=== PATIENT | female | born 1985 | race Caucasian/White ===

== ENCOUNTER 2018-11-14 23:45 | Emergency (ER) | payer BC ==
[2018-11-15] MEDS ORDERED: Sodium Chloride 0.9% 1,000 ML IV ONE (00:04)
--- NOTE | 2018-11-15 00:28 | EDM.PDOC ---
ED HPI GENERAL MEDICAL PROBLEM - General Chief Complaint: General Stated Complaint: hyperglycemia Time Seen by Provider: 11/15/18 00:21 Source of Information: Reports: Patient History Limitations: Reports: No Limitations - History of Present Illness INITIAL COMMENTS - FREE TEXT/NARRATIVE: Patient is a 33-year-old female who presents to the emergency department this evening with a complaint of high blood glucose. Patient states that approximately 2000 hours, she checked her blood sugar and it was 500. Said she felt nauseous and weak, but did not vomit. Symptoms did not improve and she was supposed to go to work, but decided to come to the ER instead. Patient states she does have difficult glucose control. Patient is on 2 oral diabetic medications. Patient denies chest pain, shortness of breath, abdominal pain, change in medication, or change in diet, Onset: Today Duration: Hour(s): Severity: Mild Improves with: Reports: None Worsens with: Reports: None Associated Symptoms: Reports: Nausea/Vomiting, Weakness - Related Data Allergies Allergy/AdvReac Type Severity Reaction Status Date / Time Nnalpup-Flm-Gwe Reductase Allergy Airway Verified 11/15/18 00:02 Inhibitor Tightness Home Meds: Home Meds Escitalopram Oxalate [Lexapro] 20 mg PO DAILY 11/15/18 [History] Ibuprofen/Diphenhydramine Cit [Advil Pm Caplet] 2 tab PO DAILY 11/15/18 [History ] Insulin Degludec [Tresiba] 26 units SUBCUT DAILY 11/15/18 [History] Liraglutide [Victoza] 1.8 mg SUBCUT DAILY 11/15/18 [History] ED ROS GENERAL - Review of Systems Review Of Systems: ROS reveals no pertinent complaints other than HPI. Constitutional: Reports: Weakness HEENT: Reports: No Symptoms Respiratory: Reports: No Symptoms Cardiovascular: Reports: No Symptoms Endocrine: Reports: High Glucose GI/Abdominal: Reports: No Symptoms : Reports: No Symptoms Musculoskeletal: Reports: No Symptoms Skin: Reports: No Symptoms Neurological: Reports: No Symptoms Psychiatric: Reports: No Symptoms Hematologic/Lymphatic: Reports: No Symptoms Immunologic: Reports: No Symptoms ED EXAM, GENERAL - Physical Exam Exam: See Below Exam Limited By: No Limitations General Appearance: Alert, WD/WN, No Apparent Distress Eye Exam: Bilateral Eye: Normal Inspection Nose: Normal Inspection, Normal Mucosa, No Blood Throat/Mouth: Normal Inspection, Normal Oropharynx, No Airway Compromise Head: Atraumatic, Normocephalic Neck: Normal Inspection, Supple Respiratory/Chest: No Respiratory Distress, Lungs Clear, Normal Breath Sounds, No Accessory Muscle Use, Chest Non-Tender Cardiovascular: Regular Rate, Rhythm, No Murmur GI/Abdominal: Normal Bowel Sounds, Soft, Non-Tender, No Organomegaly, No Distention, No Abnormal Bruit, No Mass Extremities: Normal Inspection, No Pedal Edema Neurological: Alert, Oriented, CN II-XII Intact, Normal Cognition, No Motor/ Sensory Deficits Psychiatric: Normal Affect, Normal Mood Skin Exam: Warm, Dry, Intact, Normal Color, No Rash Lymphatic: No Adenopathy Course - Vital Signs Last Recorded V/S: Last Vital Signs Temp 97.2 F 11/15/18 00:34 Pulse 93 11/15/18 00:34 Resp 18 11/15/18 00:34 BP 108/70 11/15/18 00:34 Pulse Ox 97 11/15/18 00:34 - Orders/Labs/Meds Labs: Laboratory Tests 11/15/18 11/15/18 11/15/18 Range/Units 00:25 00:25 00:30 WBC 7.46 (5.00-10.00) 10^3/uL RBC 5.05 (3.80-5.50) 10^6/uL Hgb 15.4 (12.0-16.0) g/dL Hct 42.5 (37.0-47.0) % MCV 84.2 (82.0-92.0) fL MCH 30.5 (27.0-31.0) pg MCHC 36.2 H (32.0-36.0) g/dL RDW 12.0 (11.5-14.5) % Plt Count 279 (150-400) 10^3/uL MPV 9.1 (7.4-10.4) fL Immature Gran % (Auto) 0.1 (0.0-5.0) % Neut % (Auto) 49.6 L (50.0-70.0) % Lymph % (Auto) 37.8 (20.0-40.0) % [place] % (Auto) 7.4 (2.0-8.0) % Eos % (Auto) 4.6 H (1.0-3.0) % Baso % (Auto) 0.5 (0.0-1.0) % Immature Gran # (Auto) 0.01 (0.00-0.50) 10^3/uL Neut # (Auto) 3.70 (2.50-7.00) 10^3/uL Lymph # (Auto) 2.82 (1.00-4.00) 10^3/uL [place] # (Auto) 0.55 (0.10-0.80) 10^3/uL Eos # (Auto) 0.34 H (0.10-0.30) 10^3/uL Baso # (Auto) 0.04 (0.00-0.10) 10^3/uL Sodium (136-145) mmol/L Potassium (3.3-5.3) mmol/L Chloride (98-115) mmol/L Carbon Dioxide (21.0-32.0) mmol/L Anion Gap (5-15) mmol/L BUN (6-25) mg/dL Creatinine (0.51-1.17) mg/dL Est Cr Clr Drug Dosing mL/min Estimated GFR (MDRD) mL/min Glucose (75 - 99) mg/dL Calcium (8.7-10.3) mg/dL Total Bilirubin (0.2-1.0) mg/dL AST (15-37) U/L ALT (12-78) U/L Alkaline Phosphatase (46-116) IU/L Total Protein (6.4-8.2) g/dL Albumin (3.00-4.80) g/dL Specimen Type Urincc Urine Color Yellow (YELLOW) Urine Appearance Slightly cloudy H (CLEAR) Urine pH 7.0 (5.0-9.0) Ur Specific [place] 1.010 (1.005-1.030) Urine Protein Negative (NEGATIVE) mg/dL Urine Glucose (UA) >=1000 H (NEGATIVE) mg/dL Urine Ketones 15 H (NEGATIVE) mg/dL Urine Occult Blood Negative (NEGATIVE) Urine Nitrite Negative (NEGATIVE) Urine Bilirubin Negative (NEGATIVE) Urine Urobilinogen 0.2 (0.2-1.0) E.U./dL Ur Leukocyte Esterase Negative (NEGATIVE) Urine RBC 0-5 (0-5) /HPF Urine WBC 0-5 (0-5) /HPF Ur Epithelial Cells Few /LPF Urine Bacteria Few (NONE TO FEW) /HPF Urine HCG, Qual Negative (NEGATIVE) 11/15/18 Range/Units 00:30 WBC (5.00-10.00) 10^3/uL RBC (3.80-5.50) 10^6/uL Hgb (12.0-16.0) g/dL Hct (37.0-47.0) % MCV (82.0-92.0) fL MCH (27.0-31.0) pg MCHC (32.0-36.0) g/dL RDW (11.5-14.5) % Plt Count (150-400) 10^3/uL MPV (7.4-10.4) fL Immature Gran % (Auto) (0.0-5.0) % Neut % (Auto) (50.0-70.0) % Lymph % (Auto) (20.0-40.0) % [place] % (Auto) (2.0-8.0) % Eos % (Auto) (1.0-3.0) % Baso % (Auto) (0.0-1.0) % Immature Gran # (Auto) (0.00-0.50) 10^3/uL Neut # (Auto) (2.50-7.00) 10^3/uL Lymph # (Auto) (1.00-4.00) 10^3/uL [place] # (Auto) (0.10-0.80) 10^3/uL Eos # (Auto) (0.10-0.30) 10^3/uL Baso # (Auto) (0.00-0.10) 10^3/uL Sodium 135 L (136-145) mmol/L Potassium 3.8 (3.3-5.3) mmol/L Chloride 100 (98-115) mmol/L Carbon Dioxide 27.2 (21.0-32.0) mmol/L Anion Gap 11.6 (5-15) mmol/L BUN 13 (6-25) mg/dL Creatinine 0.53 (0.51-1.17) mg/dL Est Cr Clr Drug Dosing 127.22 mL/min Estimated GFR (MDRD) > 60 mL/min Glucose 301 H (75 - 99) mg/dL Calcium 8.4 L (8.7-10.3) mg/dL Total Bilirubin 0.5 (0.2-1.0) mg/dL AST 12 L (15-37) U/L ALT 24 (12-78) U/L Alkaline Phosphatase 55 (46-116) IU/L Total Protein 7.8 (6.4-8.2) g/dL Albumin 3.63 (3.00-4.80) g/dL Specimen Type Urine Color (YELLOW) Urine Appearance (CLEAR) Urine pH (5.0-9.0) Ur Specific [place] (1.005-1.030) Urine Protein (NEGATIVE) mg/dL Urine Glucose (UA) (NEGATIVE) mg/dL Urine Ketones (NEGATIVE) mg/dL Urine Occult Blood (NEGATIVE) Urine Nitrite (NEGATIVE) Urine Bilirubin (NEGATIVE) Urine Urobilinogen (0.2-1.0) E.U./dL Ur Leukocyte Esterase (NEGATIVE) Urine RBC (0-5) /HPF Urine WBC (0-5) /HPF Ur Epithelial Cells /LPF Urine Bacteria (NONE TO FEW) /HPF Urine HCG, Qual (NEGATIVE) Meds: Medications Discontinued Medications Generic Name Dose Route Start Last Admin Trade Name Freq PRN Reason Stop Dose Admin Sodium Chloride 1,000 mls @ 2,000 mls/hr 11/15/18 00:04 11/15/18 00:19 Normal Saline IV 11/15/18 00:33 2,000 mls/hr .BOLUS ONE Administration Ondansetron HCl 4 mg 11/15/18 01:03 Zofran IVPUSH 11/15/18 01:04 ONETIME ONE - Re-Assessments/Exams Free Text/Narrative Re-Assessment/Exam: 11/15/18 01:06 Patient afebrile, vital signs stable, blood glucose 300. Patient feels better, nausea resolved. Discussed in depth the importance of glucose control. Patient will follow-up with Amador at [facility] in 1-2 days for reevaluation. 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 Return to emergency sooner if symptoms continue or worsen. Take medication as directed. - Assessment/Plan Assessment:: Hyperglycemia Plan: Follow up with [facility]
[2018-11-15 00:56] LABS: ANION GAP 11.6 mmol/L (5-15); CHLORIDE,CL 100 mmol/L (98-115); SODIUM,NA 135 mmol/L (136-145)
[2018-11-15] MEDS ORDERED: Ondansetron 4 MG/2 ML SDV IVPUSH ONE (01:03)
== END 2018-11-15 01:30 | disposition home or self-care (01) ==
LOC: KA.ED 23:45
DX: E11.65 Type 2 diabetes mellitus with hyperglycemia (principal); Z79.4 Long term (current) use of insulin; Z79.899 Other long term (current) drug therapy; Z88.8 Allergy status to other drugs, medicaments and biological substances
CPT/HCPCS: 36415; 80053; 81001; 81025; 85025; 96361; 96374; 99284-25; J2405; J7030

== ENCOUNTER 2019-04-12 14:22 | Observation (INO) | payer BC ==
[2019-04-12] MEDS ORDERED: Sodium Chloride 0.9% 10 ML Syringe FLUSH PRN (15:43)
[2019-04-12] MEDS ORDERED: Sodium Chloride 0.9% 1,000 ML IV SCH (15:52)
[2019-04-12 16:45] LABS: ANION GAP 12.7 mmol/L (5-15); CHLORIDE,CL 98 mmol/L (98-115); SODIUM,NA 134 mmol/L (136-145)
[2019-04-12] MEDS ORDERED: Insulin Aspart 100 Units/ML 3 ML Pen SUBCUT SCH (18:00)
[2019-04-12] MEDS: Insulin Aspart 100 Units/ML 3 ML Pen SUBCUT SCH ×2 (18:40→21:34)
[2019-04-12] MEDS ORDERED: Ibuprofen 600 MG Tab PO PRN (19:02)
[2019-04-12] MEDS: Sodium Chloride 0.9% 1,000 ML IV SCH (20:04)
[2019-04-12] MEDS: Insulin Glargine,Human Rec. Analog 100 Units/ML 3 ML Pen SUBCUT SCH (21:32)
[2019-04-12] MEDS: Escitalopram 10 MG Tab PO SCH (21:33)
[2019-04-13] MEDS: Sodium Chloride 0.9% 1,000 ML IV SCH ×2 (01:05→06:04)
[2019-04-13] MEDS: Insulin Aspart 100 Units/ML 3 ML Pen SUBCUT SCH ×5 (08:14→21:55)
--- NOTE | 2019-04-13 11:27 | PCM.PN ---
- General Info Date of Service: 04/13/19 Functional Status: Reports: Pain Controlled, Tolerating Diet, Urinating. Denies : New Symptoms - Review of Systems General: Denies: Weakness, Fatigue, Malaise, Chills HEENT: Reports: Sinus Congestion. Denies: Visual Changes Pulmonary: Reports: Cough. Denies: Shortness of Breath, Pleuritic Chest Pain, Sputum, Wheezing Cardiovascular: Denies: Chest Pain, Dyspnea on Exertion, Orthopnea, Edema Gastrointestinal: Reports: No Symptoms Genitourinary: Denies: Dysuria, Frequency Musculoskeletal: Reports: No Symptoms Skin: Reports: Dryness Neurological: Denies: Confusion Psychiatric: Reports: No Symptoms - Patient Data Vitals - Most Recent: Last Vital Signs Temp 98.4 F 04/13/19 06:52 Pulse 89 04/13/19 06:52 Resp 12 04/13/19 06:52 BP 102/70 04/13/19 06:52 Pulse Ox 97 04/13/19 06:52 Weight - Most Recent: 161 lb 8 oz I&O - Last 24 Hours: Intake & Output 04/12/19 04/13/19 04/13/19 22:59 06:59 14:59 Intake Total 2149 1600 Output Total 700 1000 Balance 1449 600 Lab Results Last 24 Hours: Laboratory Results - last 24 hr 04/12/19 04/12/19 04/12/19 Range/Units 15:00 15:55 16:15 WBC 9.42 (5.00-10.00) 10^3/uL RBC 4.97 (3.80-5.50) 10^6/uL Hgb 15.2 (12.0-16.0) g/dL Hct 41.1 (37.0-47.0) % MCV 82.7 (82.0-92.0) fL MCH 30.6 (27.0-31.0) pg MCHC 37.0 H (32.0-36.0) g/dL RDW 12.0 (11.5-14.5) % Plt Count 246 (150-400) 10^3/uL MPV 9.1 (7.4-10.4) fL Immature Gran % (Auto) 1.3 (0.0-5.0) % Neut % (Auto) 67.1 (50.0-70.0) % Lymph % (Auto) 23.0 (20.0-40.0) % [place] % (Auto) 6.9 (2.0-8.0) % Eos % (Auto) 1.5 (1.0-3.0) % Baso % (Auto) 0.2 (0.0-1.0) % Immature Gran # (Auto) 0.12 (0.00-0.50) 10^3/uL Neut # (Auto) 6.32 (2.50-7.00) 10^3/uL Lymph # (Auto) 2.17 (1.00-4.00) 10^3/uL [place] # (Auto) 0.65 (0.10-0.80) 10^3/uL Eos # (Auto) 0.14 (0.10-0.30) 10^3/uL Baso # (Auto) 0.02 (0.00-0.10) 10^3/uL Sodium (136-145) mmol/L Potassium (3.3-5.3) mmol/L Chloride (98-115) mmol/L Carbon Dioxide (21.0-32.0) mmol/L Anion Gap (5-15) mmol/L BUN (6-25) mg/dL Creatinine (0.51-1.17) mg/dL Est Cr Clr Drug Dosing mL/min Estimated GFR (MDRD) mL/min Glucose (75 - 99) mg/dL POC Glucose 295 H (74-106) mg/dl Lactic Acid (0.4-2.0) mmol/L Calcium (8.7-10.3) mg/dL Total Bilirubin (0.2-1.0) mg/dL AST (15-37) U/L ALT (12-78) U/L Alkaline Phosphatase (46-116) IU/L Total Protein (6.4-8.2) g/dL Albumin (3.00-4.80) g/dL Specimen Type Urinvoid Urine Color Yellow (YELLOW) Urine Appearance Slightly cloudy H (CLEAR) Urine pH 7.0 (5.0-9.0) Ur Specific [place] 1.010 (1.005-1.030) Urine Protein Negative (NEGATIVE) mg/dL Urine Glucose (UA) 500 H (NEGATIVE) mg/dL Urine Ketones Negative (NEGATIVE) mg/dL Urine Occult Blood Negative (NEGATIVE) Urine Nitrite Negative (NEGATIVE) Urine Bilirubin Negative (NEGATIVE) Urine Urobilinogen 0.2 (0.2-1.0) E.U./dL Ur Leukocyte Esterase Negative (NEGATIVE) Urine RBC 0-5 (0-5) /HPF Urine WBC 0-5 (0-5) /HPF Ur Epithelial Cells Few /LPF Urine Bacteria Few (NONE TO FEW) /HPF 04/12/19 04/12/19 04/12/19 Range/Units 16:15 16:15 17:54 WBC (5.00-10.00) 10^3/uL RBC (3.80-5.50) 10^6/uL Hgb (12.0-16.0) g/dL Hct (37.0-47.0) % MCV (82.0-92.0) fL MCH (27.0-31.0) pg MCHC (32.0-36.0) g/dL RDW (11.5-14.5) % Plt Count (150-400) 10^3/uL MPV (7.4-10.4) fL Immature Gran % (Auto) (0.0-5.0) % Neut % (Auto) (50.0-70.0) % Lymph % (Auto) (20.0-40.0) % [place] % (Auto) (2.0-8.0) % Eos % (Auto) (1.0-3.0) % Baso % (Auto) (0.0-1.0) % Immature Gran # (Auto) (0.00-0.50) 10^3/uL Neut # (Auto) (2.50-7.00) 10^3/uL Lymph # (Auto) (1.00-4.00) 10^3/uL [place] # (Auto) (0.10-0.80) 10^3/uL Eos # (Auto) (0.10-0.30) 10^3/uL Baso # (Auto) (0.00-0.10) 10^3/uL Sodium 134 L (136-145) mmol/L Potassium 3.8 (3.3-5.3) mmol/L Chloride 98 (98-115) mmol/L Carbon Dioxide 27.1 (21.0-32.0) mmol/L Anion Gap 12.7 (5-15) mmol/L BUN 13 (6-25) mg/dL Creatinine 0.48 L (0.51-1.17) mg/dL Est Cr Clr Drug Dosing 140.48 mL/min Estimated GFR (MDRD) > 60 mL/min Glucose 352 H (75 - 99) mg/dL POC Glucose 259 H (74-106) mg/dl Lactic Acid 1.2 (0.4-2.0) mmol/L Calcium 8.6 L (8.7-10.3) mg/dL Total Bilirubin 0.4 (0.2-1.0) mg/dL AST 8 L (15-37) U/L ALT 21 (12-78) U/L Alkaline Phosphatase 63 (46-116) IU/L Total Protein 7.1 (6.4-8.2) g/dL Albumin 3.40 (3.00-4.80) g/dL Specimen Type Urine Color (YELLOW) Urine Appearance (CLEAR) Urine pH (5.0-9.0) Ur Specific [place] (1.005-1.030) Urine Protein (NEGATIVE) mg/dL Urine Glucose (UA) (NEGATIVE) mg/dL Urine Ketones (NEGATIVE) mg/dL Urine Occult Blood (NEGATIVE) Urine Nitrite (NEGATIVE) Urine Bilirubin (NEGATIVE) Urine Urobilinogen (0.2-1.0) E.U./dL Ur Leukocyte Esterase (NEGATIVE) Urine RBC (0-5) /HPF Urine WBC (0-5) /HPF Ur Epithelial Cells /LPF Urine Bacteria (NONE TO FEW) /HPF 04/12/19 Range/Units 21:31 WBC (5.00-10.00) 10^3/uL RBC (3.80-5.50) 10^6/uL Hgb (12.0-16.0) g/dL Hct (37.0-47.0) % MCV (82.0-92.0) fL MCH (27.0-31.0) pg MCHC (32.0-36.0) g/dL RDW (11.5-14.5) % Plt Count (150-400) 10^3/uL MPV (7.4-10.4) fL Immature Gran % (Auto) (0.0-5.0) % Neut % (Auto) (50.0-70.0) % Lymph % (Auto) (20.0-40.0) % [place] % (Auto) (2.0-8.0) % Eos % (Auto) (1.0-3.0) % Baso % (Auto) (0.0-1.0) % Immature Gran # (Auto) (0.00-0.50) 10^3/uL Neut # (Auto) (2.50-7.00) 10^3/uL Lymph # (Auto) (1.00-4.00) 10^3/uL [place] # (Auto) (0.10-0.80) 10^3/uL Eos # (Auto) (0.10-0.30) 10^3/uL Baso # (Auto) (0.00-0.10) 10^3/uL Sodium (136-145) mmol/L Potassium (3.3-5.3) mmol/L Chloride (98-115) mmol/L Carbon Dioxide (21.0-32.0) mmol/L Anion Gap (5-15) mmol/L BUN (6-25) mg/dL Creatinine (0.51-1.17) mg/dL Est Cr Clr Drug Dosing mL/min Estimated GFR (MDRD) mL/min Glucose (75 - 99) mg/dL POC Glucose 311 H (74-106) mg/dl Lactic Acid (0.4-2.0) mmol/L Calcium (8.7-10.3) mg/dL Total Bilirubin (0.2-1.0) mg/dL AST (15-37) U/L ALT (12-78) U/L Alkaline Phosphatase (46-116) IU/L Total Protein (6.4-8.2) g/dL Albumin (3.00-4.80) g/dL Specimen Type Urine Color (YELLOW) Urine Appearance (CLEAR) Urine pH (5.0-9.0) Ur Specific [place] (1.005-1.030) Urine Protein (NEGATIVE) mg/dL Urine Glucose (UA) (NEGATIVE) mg/dL Urine Ketones (NEGATIVE) mg/dL Urine Occult Blood (NEGATIVE) Urine Nitrite (NEGATIVE) Urine Bilirubin (NEGATIVE) Urine Urobilinogen (0.2-1.0) E.U./dL Ur Leukocyte Esterase (NEGATIVE) Urine RBC (0-5) /HPF Urine WBC (0-5) /HPF Ur Epithelial Cells /LPF Urine Bacteria (NONE TO FEW) /HPF Med Orders - Current: Current Medications Escitalopram Oxalate (Lexapro) 40 mg PO BEDTIME [facility] Last Admin: 04/12/19 21:33 Dose: 40 mg Sodium Chloride (Normal Saline) 1,000 mls @ 200 mls/hr IV ASDIRECTED [facility] Last Admin: 04/13/19 06:04 Dose: 200 mls/hr Ibuprofen (Motrin) 600 mg PO Q8H PRN PRN Reason: Pain (moderate 4-6) Insulin Aspart (Novolog) 0 unit SUBCUT WITHMEALSANDBED [facility]; Protocol Last Admin: 04/13/19 08:14 Dose: 3 units Insulin Glargine (Lantus Solostar) 30 units SUBCUT BEDTIME [facility] Last Admin: 04/12/19 21:32 Dose: 30 unit Sodium Chloride (Saline Flush) 10 ml FLUSH Q8HR PRN PRN Reason: keep vein open Discontinued Medications Sodium Chloride (Normal Saline) 1,000 mls @ 250 mls/hr IV ASDIRECTED [facility] Stop: 04/12/19 19:51 Last Admin: 04/12/19 15:50 Dose: 250 mls/hr - Exam Quality Assessment: No: Supplemental Oxygen General: Alert, Oriented, Cooperative, No Acute Distress HEENT: No: Mucous Membr. Moist/[place] Neck: No JVD Lungs: Clear to Auscultation, Normal Respiratory Effort Cardiovascular: Regular Rate, Regular Rhythm GI/Abdominal Exam: Normal Bowel Sounds, Soft (Female) Exam: Deferred Back Exam: No: CVA Tenderness (L), CVA Tenderness (R) Extremities: Normal Capillary Refill. No: Pedal Edema Peripheral Pulses: 2+: Radial (L), Radial (R) Skin: Dry Neurological: No New Focal Deficit Psy/Mental Status: Alert, Normal Affect, Normal Mood - Problem List Review Problem List Initiated/Reviewed/Updated: Yes - Plan Plan:: History summary/ pre-hospital course Crystal a 33-year-old female is admitted into [facility] by Amador ROWLAND on April 12 from [facility] with generalize constitutional symptoms such as weakness, fatigue, cough, laryngitis, nasal congestion, on and off undocumented fevers, diaphoresis and sx suggestive of upper respiratory tract infection along with uncontrolled diabetes with hyperglycemia. Patient is a type I diabetic since age 18 with recent hemoglobin A1c 10.5%. She was recently given nasal and oral glucocorticoid therapy due to laryngitis and eustachian tube dysfunction She start on insulin age 20 and she was initially starting on metformin however developed GI side effects and could not tolerate. Was some concern whether or not she was a type I or type II and C-peptide studies were done and she is being ostensibly treated as type I. She had been on simvastatin in the past however she took herself off of this chest pains or shortness of breath, Interviewing the patient, uncontrolled type 1 diabetes hemoglobin A1c as high as 14% per patient report, works night shifts, no prandial coverage insulin, has basic understand about CHO counting however admits to not following, Does not prepare her own meals, states she eats what her brings her. States she has seen M.D.~ 1 year ago @ previous residence. She not using prandial meal coverage, she states in the past even 1 unit insulin will make her "bottom out" Current home insulin regimen Tresiba 27u daily (was increased to 30units Long acting on admission) GLP-1 Victoza 1.8 mg daily Pertinent clinical findings Glucose ~500-700 NA+ 129, (corrected 144) Update today, patient feeling better, was hydrated aggressively with IV fluids, blood glucose is improving, was started on a high-dose ISS, no signs and symptoms of DKA, no shortness of breath, lactate normal Primary hospital problems T1DM, uncontrolled, hyperglycemia, improving Dehydration, becoming euvolemic, Disposition/overall plan/discharge planning --Cont OBS status today --Saline lock IV, encourage by mouth fluids --Nutritional consult today --Pharmacy consult for Dimitris blood glucose device. --Endocrinology consultation--recommend insulin pump --Short-term, still requiring significant insulin and will monitor both long- acting and prandial needs, keep on GLP-1 for now until Endo appt. will need very close follow-up to monitor her self-management diabetes including diabetic education, family education.
[2019-04-13] MEDS ORDERED: Sodium Chloride 0.9% 10 ML Syringe FLUSH PRN (11:36)
[2019-04-13] MEDS ORDERED: Escitalopram 10 MG Tab PO SCH (21:00)
[2019-04-13] MEDS ORDERED: Insulin Aspart 100 Units/ML 3 ML Pen SUBCUT ONE ×2 (21:51→21:53)
[2019-04-13] MEDS: Escitalopram 10 MG Tab PO SCH (21:59)
[2019-04-13] MEDS: Insulin Glargine,Human Rec. Analog 100 Units/ML 3 ML Pen SUBCUT SCH (22:00)
[2019-04-14] MEDS: Insulin Aspart 100 Units/ML 3 ML Pen SUBCUT SCH ×2 (08:06→12:16)
--- NOTE | 2019-04-14 10:55 | PCM.DCSUM1 ---
Discharge Summary - Hospital Course Diagnosis: Stroke: No - Discharge Data Discharge Date: 04/14/19 Discharge Disposition: Home, Self-Care 01 Condition: Good - Referral to Home Health Primary Care Physician: Amador Mayfield PA-C - Patient Summary/Data Consults: Consultations 04/13/19 12:09 Nutrition Reassessment/Plan, Adult [Consult to Medical Office Professional Instructor] [CONS] Routine - Patient Instructions Diet: Drink 8-10+ Glasses/Day, Diabetic Diet Activity: As Tolerated Driving: May Drive Today Notify Provider of: Fever, Nausea and/or Vomiting Other/Special Instructions: Correction scale (additional insulin added to your preset mealtime insulin). Glucose: less than 150, no ADDED insulin. Glucose: 150-199, additional 1 unit. Glucose: 200-249, additional 2 units. Glucose: 250-299, additional 3 units. Glucose: 300-349, additional 4 units. Glucose : 350-400, additional 5 units. Glucose: greater than 400 notify provider. I have ordered your Dimitris glucose machie through your pharmacy. Nutrional consult has been placed--you will be called. - Discharge Plan *PRESCRIPTION DRUG MONITORING PROGRAM REVIEWED*: Not Applicable *COPY OF PRESCRIPTION DRUG MONITORING REPORT IN PATIENT AMA: Not Applicable Home Medications: Home Meds Ibuprofen/Diphenhydramine Cit [Advil Pm Caplet] 2 tab PO DAILY PRN 11/15/18 [ History] Liraglutide [Victoza] 1.8 mg SUBCUT 2100 11/15/18 [History] Escitalopram Oxalate [Lexapro] 20 mg PO 2100 #90 04/14/19 [Rx] Insulin Degludec [Tresiba] 30 units SUBCUT 2100 #0 04/14/19 [Rx] Forms: Return to Work/Inpatient OON - Discharge Summary/Plan Comment DC Time >30 min.: Yes Discharge Summary/Plan Comment: final diagnosis T1DM, uncontrolled, hyperglycemia, improving Dehydration, resolved History summary/pre-hospital course Crystal a 33-year-old female is admitted into [facility] by Amador ROWLAND on April 12 from [facility] with generalize constitutional symptoms such as weakness, fatigue, cough, laryngitis, nasal congestion, on and off undocumented fevers, diaphoresis and sx suggestive of upper respiratory tract infection along with uncontrolled diabetes with hyperglycemia. Patient is a type I diabetic since age 18 with recent hemoglobin A1c 10.5%. She was recently given nasal and oral glucocorticoid therapy due to laryngitis and eustachian tube dysfunction. She start on insulin age 20 and she was initially starting on metformin however developed GI side effects and could not tolerate. Was some concern whether or not she was a type I or type II and C-peptide studies were done and she is being ostensibly treated as type I. She had been on simvastatin in the past however she took herself off of this chest pains or shortness of breath. patient reports that she has had A1c as high as 14% per patient report, works night shifts, no prandial coverage insulin, has basic understand about CHO counting however admits to not following, Does not prepare her own meals, states she eats what her brings her. States she has seen M.D.~ 1 year ago @ previous residence. She not using prandial meal coverage, she states in the past even 1 unit insulin will make her "bottom out" Current home insulin regimen Tresiba 27u daily (was increased to 30units Long acting on admission) GLP-1 Victoza 1.8 mg daily hospital course Had Glucose ~500-700, NA+ 129, (corrected 144).Upon arrival patient was hydrated aggressively with IV fluids, blood glucose did improve with addition of insulin coverage. started on a high-dose ISS, no signs and symptoms of DKA, no shortness of breath, lactate normal, became euvole Had no complications. She was very receptive of all education given to her. Dietary consult visit her in hospital, motivational interview techinques were used and appears the patient motivating factor went from a 2/10 to 8/10 on SMBG testing IF she would not have to stick herself in finger--Therefore Dimitris Blood monitoring system was ordered through [facility] for her. consultations --Endocrinology consultation, placed --diabetic education, placed --Nutrition/dietary consult, placed for 2 weeks then QTRLY, with Alejandra Chao, --Rx consult, discussed with her pharmacist Wil, and he will reeducate regarding testing her finger appropriately medication changes/adjustments upon discharge --Tresiba, increased to 30u QHS (up from 27) --decreased Lexapro to 20 mg --add NovoLog/aspart meal as directed --ordered new testing strips for current blood glucose meter --ordered Dimitris Meter and 14 Day Sensor through [facility] NovoLog 4 units for small meal (PLUS Insulin sliding scale) NovoLog 6 units for larger meal (PLUS Insulin sliding scale) Correction scale (additional insulin added to you preset fixed mealtime insulin) Glucose: less than 150, no ADDED insulin Glucose: 150-199, additional 1 unit Glucose: 200-249, additional 2 units Glucose: 250-299, additional 3 units Glucose: 300-349, additional 4 units Glucose: 350-400, additional 5 units Glucose: greater than 400 notify provider - General Info Functional Status: Reports: Pain Controlled - Review of Systems General: Reports: No Symptoms HEENT: Reports: No Symptoms Pulmonary: Reports: No Symptoms Cardiovascular: Reports: No Symptoms Gastrointestinal: Reports: No Symptoms Genitourinary: Reports: No Symptoms Musculoskeletal: Reports: No Symptoms Skin: Reports: No Symptoms Neurological: Reports: No Symptoms Psychiatric: Reports: No Symptoms - Patient Data Vitals - Most Recent: Last Vital Signs Temp 98.4 F 04/14/19 07:00 Pulse 91 04/14/19 07:00 Resp 16 04/14/19 07:00 BP 97/65 04/14/19 07:00 Pulse Ox 95 04/14/19 07:00 Weight - Most Recent: 161 lb 8 oz I&O - Last 24 hours: Intake & Output 04/13/19 04/14/19 04/14/19 22:59 06:59 14:59 Intake Total 940 100 Output Total 2480 1100 Balance -1540 -1000 Lab Results - Last 24 hrs: Laboratory Results - last 24 hr 04/13/19 04/13/19 04/13/19 Range/Units 07:59 11:40 17:45 POC Glucose 177 H 312 H 299 H (74-106) mg/dl 04/13/19 04/14/19 Range/Units 21:26 07:30 POC Glucose 402 H 198 H (74-106) mg/dl Med Orders - Current: Current Medications Escitalopram Oxalate (Lexapro) 40 mg PO BEDTIME MOOSE Last Admin: 04/13/19 21:59 Dose: 40 mg Ibuprofen (Motrin) 600 mg PO Q8H PRN PRN Reason: Pain (moderate 4-6) Last Admin: 04/14/19 08:07 Dose: 600 mg Insulin Aspart (Novolog) 0 unit SUBCUT WITHMEALSANDBED MOOSE; Protocol Last Admin: 04/14/19 08:06 Dose: 3 units Insulin Glargine (Lantus Solostar) 30 units SUBCUT BEDTIME [facility] Last Admin: 04/13/19 22:00 Dose: 30 unit Sodium Chloride (Saline Flush) 10 ml FLUSH Q8HR PRN PRN Reason: keep vein open Sodium Chloride (Saline Flush) 10 ml FLUSH Q8HR PRN PRN Reason: keep vein open Discontinued Medications Sodium Chloride (Normal Saline) 1,000 mls @ 250 mls/hr IV ASDIRECTED [facility] Stop: 04/12/19 19:51 Last Admin: 04/12/19 15:50 Dose: 250 mls/hr Sodium Chloride (Normal Saline) 1,000 mls @ 200 mls/hr IV ASDIRECTED [facility] Last Admin: 04/13/19 06:04 Dose: 200 mls/hr Insulin Aspart (Novolog) 20 unit SUBCUT ONETIME ONE Stop: 04/13/19 21:54 Last Admin: 04/13/19 22:02 Dose: 20 unit - Exam General: Reports: Alert, Oriented Lungs: Reports: Clear to Auscultation, Normal Respiratory Effort Cardiovascular: Reports: Regular Rate, Regular Rhythm GI/Abdominal Exam: No Distention Skin: Reports: Warm, Dry, Intact Psy/Mental Status: Reports: Alert, Normal Affect, Normal Mood
== END 2019-04-14 16:45 | disposition home or self-care (01) ==
LOC: KA.MS 14:22
PROVIDERS: ADMIT Physician Assistant; ATTEND Family Medicine
DX: E10.65 Type 1 diabetes mellitus with hyperglycemia (principal); E86.0 Dehydration; J04.0 Acute laryngitis; H69.90 Unspecified Eustachian tube disorder, unspecified ear; Z79.4 Long term (current) use of insulin; Z79.899 Other long term (current) drug therapy; Z88.8 Allergy status to other drugs, medicaments and biological substances
CPT/HCPCS: 36415; 80053; 81001; 82962; 83605; 85025; 96360; 96361; A9270; G0378; G0379; J1815; J7030

== ENCOUNTER 2019-04-15 17:48 | Emergency (ER) | payer BC ==
[2019-04-15] MEDS ORDERED: Sodium Chloride 0.9% 1,000 ML IV ONE (18:06)
[2019-04-15] MEDS: Sodium Chloride 0.9% 10 ML Syringe FLUSH PRN ×2 (18:12→20:18)
[2019-04-15] MEDS ORDERED: Ondansetron 4 MG/2 ML SDV IVPUSH ONE ×2 (18:39→20:06)
--- NOTE | 2019-04-15 18:46 | EDM.PDOC ---
ED HPI GENERAL MEDICAL PROBLEM - General Chief Complaint: Gastrointestinal Problem Stated Complaint: NAUSEA/VOMITTING Time Seen by Provider: 04/15/19 18:26 Source of Information: Reports: Patient, Significant Other History Limitations: Reports: No Limitations - History of Present Illness INITIAL COMMENTS - FREE TEXT/NARRATIVE: Patient presents with vomiting that started at 0900 this morning when she tried to eat breakfast. She only ate a couple bites and vomited. She has vomited twice more today and has been nauseated. Can't eat or drink anything. Yesterday she was discharged from [facility] after 3-day stay for dehydration, hyperglycemia (700+ glucose), ENT infection. She had treated with prednisone which raised her glucose. She says she hadn't vomited prior to, or during, the hospitalization. On discharge she was really tired and slept 14 hours last night. Then started vomiting this morning. She last vomited on the way to ER and is nauseated now. POC glucose is 173. Abdominal Pain Score (Numeric/FACES): 4 - Related Data Allergies Allergy/AdvReac Type Severity Reaction Status Date / Time [id number] Reductase Allergy Airway Verified 04/15/19 18:03 Inhibitor Tightness Home Meds: Home Meds Ibuprofen/Diphenhydramine Cit [Advil Pm Caplet] 2 tab PO DAILY PRN 11/15/18 [ History] Liraglutide [Victoza] 1.8 mg SUBCUT 2100 11/15/18 [History] Escitalopram Oxalate [Lexapro] 20 mg PO DAILY 04/15/19 [History] Insulin Aspart [NovoLOG] See Protocol SQ TIDMEALS 04/15/19 [History] Insulin Degludec [Tresiba] 30 units SUBCUT DAILY 04/15/19 [History] Past Medical History Cardiovascular History: Reports: High Cholesterol, Other (See Below) Other Cardiovascular History: broken heart syndrome Other Gastrointestinal History: diarrhea last week Genitourinary History: Reports: Pyelonephritis, UTI, Recurrent PROCESS DESIGN ENGINEER History: Reports: Endometrial Ablation, Other PROCESS DESIGN ENGINEER History: G-3.P-3 Musculoskeletal History: Reports: Arthritis Other Musculoskeletal History: wrists. tendonitis foot Psychiatric History: Reports: Anxiety, Depression, Suicide Attempt Endocrine/Metabolic History: Reports: Diabetes, Type I - Past Surgical History Head Surgeries/Procedures: Reports: None HEENT Surgical History: Reports: Oral Surgery Cardiovascular Surgical History: Reports: None GI Surgical History: Reports: Other (See Below) Other GI Surgeries/Procedures: tummy tuck Female Surgical History: Reports: Endometrial Ablation, Other (See Below) Other Female Surgeries/Procedures: breast augmentation Musculoskeletal Surgical History: Reports: None Social & Family History - Family History Family Medical History: Noncontributory - Caffeine Use Caffeine Use: Reports: Coffee ED ROS GENERAL - Review of Systems Review Of Systems: See Below Constitutional: Denies: Fever, Chills, Malaise, Weakness HEENT: Denies: Ear Pain, Throat Pain, Vision Change Respiratory: Denies: Shortness of Breath, Cough Cardiovascular: Denies: Chest Pain, Lightheadedness, Syncope Endocrine: Reports: High Glucose GI/Abdominal: Reports: Nausea, Vomiting. Denies: Abdominal Pain, Diarrhea : Denies: Dysuria, Flank Pain Musculoskeletal: Reports: No Symptoms Skin: Denies: Cyanosis, Jaundice, Mottled, Pallor, Diaphoresis Neurological: Denies: Confusion, Dizziness, Seizure, Syncope, Trouble Speaking, Difficulty Walking Psychiatric: Denies: Agitation, Anxiety ED EXAM, GI/ABD - Physical Exam Exam: See Below Exam Limited By: No Limitations General Appearance: Alert, WD/WN, No Apparent Distress (appears very comfortable and well) Eyes: Bilateral: Normal Appearance, EOMI Ears: Normal External Exam, Normal Canal, Hearing Grossly Normal, Normal TMs Nose: Normal Inspection, No Blood Throat/Mouth: Normal Inspection, Normal Lips, Normal Oropharynx, Normal Voice, No Airway Compromise Head: Atraumatic, Normocephalic Neck: Normal Inspection, Full Range of Motion Respiratory/Chest: No Respiratory Distress, Lungs Clear, Normal Breath Sounds, No Accessory Muscle Use Cardiovascular: Regular Rate, Rhythm, No Murmur GI/Abdominal Exam: Normal Bowel Sounds, Soft, Non-Tender, No Organomegaly, No Distention Back Exam: Normal Inspection, Full Range of Motion. No: CVA Tenderness (L), CVA Tenderness (R) Extremities: Normal Inspection, Normal Range of Motion Neurological: Alert, Oriented, Normal Cognition, No Motor/Sensory Deficits Psychiatric: Normal Affect, Normal Mood Skin Exam: Warm, Dry, Intact, Normal Color, No Rash Course - Vital Signs Last Recorded V/S: Last Vital Signs Temp 97.2 F 04/15/19 20:04 Pulse 86 04/15/19 20:04 Resp 16 04/15/19 20:04 BP 107/74 04/15/19 20:04 Pulse Ox 98 04/15/19 20:04 - Orders/Labs/Meds Orders: Active Orders 24 hr Category Date Time Status Blood Glucose Check, Bedside [RC] ONETIME Care 04/15/19 18:17 Active Peripheral IV Care [RC] . DIRECTED Care 04/15/19 18:06 Active Sodium Chloride 0.9% [Saline Flush] Med 04/15/19 18:06 Active 10 ml FLUSH Q8HR PRN Peripheral IV Insertion Adult [OM.PC] Routine Oth 04/15/19 18:06 Ordered Medication Orders Sodium Chloride (Saline Flush) 10 ml FLUSH Q8HR PRN PRN Reason: keep vein open Last Admin: 04/15/19 20:18 Dose: 10 ml Admin: 04/15/19 18:12 Dose: 10 ml Labs: Laboratory Tests 04/15/19 04/15/19 04/15/19 Range/Units 18:16 18:20 18:20 WBC (5.00-10.00) 10^3/uL RBC (3.80-5.50) 10^6/uL Hgb (12.0-16.0) g/dL Hct (37.0-47.0) % MCV (82.0-92.0) fL MCH (27.0-31.0) pg MCHC (32.0-36.0) g/dL RDW (11.5-14.5) % Plt Count (150-400) 10^3/uL MPV (7.4-10.4) fL Immature Gran % (Auto) (0.0-5.0) % Neut % (Auto) (50.0-70.0) % Lymph % (Auto) (20.0-40.0) % [place] % (Auto) (2.0-8.0) % Eos % (Auto) (1.0-3.0) % Baso % (Auto) (0.0-1.0) % Immature Gran # (Auto) (0.00-0.50) 10^3/uL Neut # (Auto) (2.50-7.00) 10^3/uL Lymph # (Auto) (1.00-4.00) 10^3/uL [place] # (Auto) (0.10-0.80) 10^3/uL Eos # (Auto) (0.10-0.30) 10^3/uL Baso # (Auto) (0.00-0.10) 10^3/uL Sodium (136-145) mmol/L Potassium (3.3-5.3) mmol/L Chloride (98-115) mmol/L Carbon Dioxide (21.0-32.0) mmol/L Anion Gap (5-15) mmol/L BUN (6-25) mg/dL Creatinine (0.51-1.17) mg/dL Est Cr Clr Drug Dosing mL/min Estimated GFR (MDRD) mL/min Glucose (75 - 99) mg/dL POC Glucose 173 H (74-106) mg/dl Lactic Acid (0.4-2.0) mmol/L Calcium (8.7-10.3) mg/dL Total Bilirubin (0.2-1.0) mg/dL AST (15-37) U/L ALT (12-78) U/L Alkaline Phosphatase (46-116) IU/L Total Protein (6.4-8.2) g/dL Albumin (3.00-4.80) g/dL Specimen Type Urincc Urine Color Yellow (YELLOW) Urine Appearance Slightly cloudy H (CLEAR) Urine pH 5.0 (5.0-9.0) Ur Specific Morehouse >= 1.030 (1.005-1.030) Urine Protein 30 H (NEGATIVE) mg/dL Urine Glucose (UA) Negative (NEGATIVE) mg/dL Urine Ketones >=160 H (NEGATIVE) mg/dL Urine Occult Blood Negative (NEGATIVE) Urine Nitrite Negative (NEGATIVE) Urine Bilirubin Small H (NEGATIVE) Urine Urobilinogen 0.2 (0.2-1.0) E.U./dL Ur Leukocyte Esterase Negative (NEGATIVE) Urine RBC 0-5 (0-5) /HPF Urine WBC 0-5 (0-5) /HPF Ur Epithelial Cells Moderate H /LPF Urine Bacteria Few (NONE TO FEW) /HPF Urine HCG, Qual Negative (NEGATIVE) 04/15/19 04/15/19 04/15/19 Range/Units 18:40 18:40 18:40 WBC 8.62 (5.00-10.00) 10^3/uL RBC 5.30 (3.80-5.50) 10^6/uL Hgb 16.2 H (12.0-16.0) g/dL Hct 44.9 (37.0-47.0) % MCV 84.7 (82.0-92.0) fL MCH 30.6 (27.0-31.0) pg MCHC 36.1 H (32.0-36.0) g/dL RDW 12.3 (11.5-14.5) % Plt Count 226 (150-400) 10^3/uL MPV 8.9 (7.4-10.4) fL Immature Gran % (Auto) 0.5 (0.0-5.0) % Neut % (Auto) 68.7 (50.0-70.0) % Lymph % (Auto) 21.5 (20.0-40.0) % [place] % (Auto) 6.6 (2.0-8.0) % Eos % (Auto) 2.6 (1.0-3.0) % Baso % (Auto) 0.1 (0.0-1.0) % Immature Gran # (Auto) 0.04 (0.00-0.50) 10^3/uL Neut # (Auto) 5.93 (2.50-7.00) 10^3/uL Lymph # (Auto) 1.85 (1.00-4.00) 10^3/uL [place] # (Auto) 0.57 (0.10-0.80) 10^3/uL Eos # (Auto) 0.22 (0.10-0.30) 10^3/uL Baso # (Auto) 0.01 (0.00-0.10) 10^3/uL Sodium 141 (136-145) mmol/L Potassium 4.3 (3.3-5.3) mmol/L Chloride 103 (98-115) mmol/L Carbon Dioxide 28.6 (21.0-32.0) mmol/L Anion Gap 13.7 (5-15) mmol/L BUN 16 (6-25) mg/dL Creatinine 0.63 (0.51-1.17) mg/dL Est Cr Clr Drug Dosing 107.03 mL/min Estimated GFR (MDRD) > 60 mL/min Glucose 173 H (75 - 99) mg/dL POC Glucose (74-106) mg/dl Lactic Acid 0.9 (0.4-2.0) mmol/L Calcium 9.0 (8.7-10.3) mg/dL Total Bilirubin 0.7 (0.2-1.0) mg/dL AST 11 L (15-37) U/L ALT 24 (12-78) U/L Alkaline Phosphatase 57 (46-116) IU/L Total Protein 7.4 (6.4-8.2) g/dL Albumin 3.54 (3.00-4.80) g/dL Specimen Type Urine Color (YELLOW) Urine Appearance (CLEAR) Urine pH (5.0-9.0) Ur Specific [place] (1.005-1.030) Urine Protein (NEGATIVE) mg/dL Urine Glucose (UA) (NEGATIVE) mg/dL Urine Ketones (NEGATIVE) mg/dL Urine Occult Blood (NEGATIVE) Urine Nitrite (NEGATIVE) Urine Bilirubin (NEGATIVE) Urine Urobilinogen (0.2-1.0) E.U./dL Ur Leukocyte Esterase (NEGATIVE) Urine RBC (0-5) /HPF Urine WBC (0-5) /HPF Ur Epithelial Cells /LPF Urine Bacteria (NONE TO FEW) /HPF Urine HCG, Qual (NEGATIVE) Meds: Medications Generic Name Dose Route Start Last Admin Trade Name Mohit PRN Reason Stop Dose Admin Sodium Chloride 10 ml 04/15/19 18:06 04/15/19 20:18 Saline Flush FLUSH 10 ml Q8HR PRN Administration keep vein open Discontinued Medications Generic Name Dose Route Start Last Admin Trade Name Mohit PRN Reason Stop Dose Admin Sodium Chloride 1,000 mls @ 999 mls/hr 04/15/19 18:06 04/15/19 18:42 Normal Saline IV 04/15/19 19:06 999 mls/hr .BOLUS ONE Administration Ondansetron HCl 4 mg 04/15/19 18:39 04/15/19 18:45 Zofran IVPUSH 04/15/19 18:40 4 mg ONETIME ONE Administration Ondansetron HCl 24 mg 04/15/19 19:52 04/15/19 20:17 Zofran Odt PO 04/15/19 19:53 Not Given ONETIME ONE Ondansetron HCl 4 mg 04/15/19 20:06 04/15/19 20:18 Zofran IVPUSH 04/15/19 20:07 4 mg ONETIME ONE Administration - Re-Assessments/Exams Free Text/Narrative Re-Assessment/Exam: 04/15/19 19:48 Urine ketones high but otherwise labs good. No glucosuria or acidosis. Discussed this with Dr. Haynes who feels this isolated ketonuria is okay for now. Will encourage fluids and use ODT zofran. 04/15/19 20:18 A liter of fluids and Zofran is in. HR down to 86 from 114 at arrival. Patient feeling better and ate a piece of toast. A bit of nausea returned so we will give another dose of Zofran IV before removing IV. Discussed findings and treatment plan with patient. Discharged to home in stable condition with 6 doses of Zofran odt to get through the weekend. Departure - Departure Time of Disposition: 20:16 Disposition: Home, Self-Care 01 Condition: Good Clinical Impression: Nausea and vomiting Qualifiers: Vomiting type: unspecified Vomiting Intractability: non-intractable Qualified Code(s): R11.2 - Nausea with vomiting, unspecified - Discharge Information Instructions: Nausea and Vomiting, Adult, [id number] Referrals: Kayden Quevedo FASHION ADVISER [Primary Care Provider] - Forms: ED Department Discharge Additional Instructions: 1. Take the Zofran as directed for nausea. 2. Try to drink 8 cups of water daily to prevent dehydration. 3. Use your regular medications as directed. 4. Follow up with your PCP in 2-3 days if not significantly improving. 5. If significantly worsening, return to ER. - My Orders Last 24 Hours: My Active Orders 04/15/19 18:06 Peripheral IV Care [RC] . DIRECTED Sodium Chloride 0.9% [Saline Flush] 10 ml FLUSH Q8HR PRN Peripheral IV Insertion Adult [OM.PC] Routine 04/15/19 18:17 Blood Glucose Check, Bedside [RC] ONETIME - Assessment/Plan Last 24 Hours: My Active Orders 04/15/19 18:06 Peripheral IV Care [RC] . DIRECTED Sodium Chloride 0.9% [Saline Flush] 10 ml FLUSH Q8HR PRN Peripheral IV Insertion Adult [OM.PC] Routine 04/15/19 18:17 Blood Glucose Check, Bedside [RC] ONETIME
[2019-04-15 19:06] LABS: ANION GAP 13.7 mmol/L (5-15); CHLORIDE,CL 103 mmol/L (98-115); SODIUM,NA 141 mmol/L (136-145)
[2019-04-15] MEDS ORDERED: Ondansetron 4 MG Tab.DIS PO ONE (19:52)
== END 2019-04-15 20:25 | disposition home or self-care (01) ==
LOC: KA.ED 17:48
DX: R11.2 Nausea with vomiting, unspecified (principal); E10.9 Type 1 diabetes mellitus without complications; Z88.8 Allergy status to other drugs, medicaments and biological substances; Z79.4 Long term (current) use of insulin
CPT/HCPCS: 36415; 80053; 81001; 81025; 82962; 83605; 85025; 96361; 96374; 96376; 99283; J2405; J7030

== ENCOUNTER 2019-11-01 21:57 | Emergency (ER) | payer BC, OTHER ==
--- NOTE | 2019-11-01 22:58 | EDM.PDOC ---
ED HPI GENERAL MEDICAL PROBLEM - General Stated Complaint: SHORTNESS OF BREATH Time Seen by Provider: 11/01/19 22:35 Source of Information: Reports: Patient, Significant Other History Limitations: Reports: No Limitations - History of Present Illness INITIAL COMMENTS - FREE TEXT/NARRATIVE: Patient presents with fever, cough and dyspnea. She says the fever started 48 hours ago and was 101.7 about 4 hours ago. She took Tylenol before coming in. 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 She has diabetes but no lung disease or other chronic diseases. She had a UTI and just recently finished a 5-day course of Macrobid. She still has dysuria and right flank pain though. There have not been any cases of Covid-19 at work yet she says. Bilateral Chest Pain Score (Numeric/FACES): 4 - Related Data Allergies Allergy/AdvReac Type Severity Reaction Status Date / Time prednisone Allergy Elevated Verified 11/01/19 22:41 Blood Glucose Qwmuvwm-Atz-Hue Reductase AdvReac Airway Verified 11/01/19 22:41 Inhibitor Tightness Home Meds: Home Meds Insulin Aspart [NovoLOG] See Protocol SQ TIDMEALS 04/15/19 [History] Insulin Degludec [Tresiba] 28 units SUBCUT DAILY 04/15/19 [History] lamoTRIgine [Lamotrigine] 200 mg PO DAILY 07/20/19 [History] Acetaminophen [Tylenol] 650 mg PO Q4H PRN 11/01/19 [History] Past Medical History Cardiovascular History: Reports: High Cholesterol, Other (See Below) Other Cardiovascular History: broken heart syndrome Gastrointestinal History: Reports: GERD, Other (See Below) (Gastroparesis) Other Gastrointestinal History: diarrhea last week Genitourinary History: Reports: Pyelonephritis, UTI, Recurrent MEMBERSHIP ADVISOR History: Reports: Endometrial Ablation, Other MEMBERSHIP ADVISOR History: G-3.P-3 Musculoskeletal History: Reports: Arthritis Other Musculoskeletal History: wrists. tendonitis foot Psychiatric History: Reports: Anxiety, Bipolar, Depression, Suicide Attempt Endocrine/Metabolic History: Reports: Diabetes, Type I - Past Surgical History Head Surgeries/Procedures: Reports: None HEENT Surgical History: Reports: Oral Surgery Cardiovascular Surgical History: Reports: None GI Surgical History: Reports: Other (See Below) Other GI Surgeries/Procedures: tummy tuck Female Surgical History: Reports: Endometrial Ablation, Other (See Below) Other Female Surgeries/Procedures: breast augmentation Musculoskeletal Surgical History: Reports: None Social & Family History - Family History Family Medical History: Noncontributory - Caffeine Use Caffeine Use: Reports: None ED ROS GENERAL - Review of Systems Review Of Systems: See Below Constitutional: Reports: Fever, Fatigue HEENT: Denies: Ear Pain, Throat Pain, Throat Swelling, Vision Change Respiratory: Reports: Shortness of Breath (she says she feels short of breath but realizes she is breathing just fine), Cough Cardiovascular: Denies: Chest Pain, Lightheadedness, Syncope Endocrine: Reports: Fatigue, Other (IDDM) GI/Abdominal: Reports: Vomiting (several hours ago). Denies: Abdominal Pain, Diarrhea : Reports: Dysuria, Flank Pain Musculoskeletal: Denies: Neck Pain, Shoulder Pain, Arm Pain, Back Pain, Hand Pain Skin: Denies: Cyanosis, Jaundice, Mottled, Pallor, Diaphoresis Neurological: Denies: Confusion, Dizziness, Headache, Seizure, Syncope, Trouble Speaking, Difficulty Walking Psychiatric: Denies: Agitation, Anxiety, Confusion ED EXAM, GENERAL - Physical Exam Exam: See Below Exam Limited By: No Limitations General Appearance: Alert, WD/WN, No Apparent Distress Eye Exam: Bilateral Eye: EOMI, Normal Inspection, PERRL Ears: Normal External Exam, Hearing Grossly Normal Nose: Normal Inspection, No Blood Throat/Mouth: Normal Inspection, Normal Voice, No Airway Compromise Head: Atraumatic, Normocephalic Neck: Normal Inspection, Full Range of Motion Respiratory/Chest: No Respiratory Distress, Lungs Clear, Normal Breath Sounds, No Accessory Muscle Use. No: Crackles, Rales, Rhonchi, Wheezing, Stridor Cardiovascular: Regular Rate, Rhythm, No Murmur GI/Abdominal: Normal Bowel Sounds, Soft, No Organomegaly, No Distention, Tender (suprapubic). No: Distended, Guarding, Rigid Back Exam: Normal Inspection, Full Range of Motion, CVA Tenderness (R). No: CVA Tenderness (L) Extremities: Normal Inspection, Normal Range of Motion Neurological: Alert, Oriented, Normal Cognition, No Motor/Sensory Deficits Psychiatric: Normal Affect, Normal Mood Skin Exam: Warm, Dry, Intact, Normal Color, No Rash Course - Vital Signs Last Recorded V/S: Last Vital Signs Temp 97.3 F 11/01/19 23:40 Pulse 81 11/01/19 23:40 Resp 18 11/01/19 23:40 BP 121/60 11/01/19 23:40 Pulse Ox 97 11/01/19 23:40 - Orders/Labs/Meds Orders: Active Orders 24 hr Category Date Time Status CXR [Chest 2V] [CR] Stat Exams 11/01/19 23:07 Ordered CORONAVIRUS COVID-19 PCR PHL Stat Lab 11/01/19 22:51 Ordered CULTURE URINE [RM] Stat Lab 11/01/19 23:41 Ordered Sodium Chloride 0.9% @ 999 MLS/HR (1000ml) Med 11/01/19 23:10 Ordered Sodium Chloride 0.9% [Normal Saline] 1,000 ml IV .BOLUS Isolation [COMM] Routine Oth 11/01/19 22:50 Ordered Medication Orders Sodium Chloride (Normal Saline) 1,000 mls @ 999 mls/hr IV .BOLUS ONE Stop: 11/02/19 00:10 Last Admin: 11/01/19 23:15 Dose: 999 mls/hr Labs: Laboratory Tests 11/01/19 11/01/19 11/01/19 Range/Units 22:16 23:05 23:05 WBC 6.18 (5.00-10.00) 10^3/uL RBC 4.88 (3.80-5.50) 10^6/uL Hgb 14.7 D (12.0-16.0) g/dL Hct 41.4 (37.0-47.0) % MCV 84.8 (82.0-92.0) fL MCH 30.1 (27.0-31.0) pg MCHC 35.5 (32.0-36.0) g/dL RDW 12.3 (11.5-14.5) % Plt Count 234 (150-400) 10^3/uL MPV 8.5 (7.4-10.4) fL Immature Gran % (Auto) 0.2 (0.0-5.0) % Neut % (Auto) 53.2 (50.0-70.0) % Lymph % (Auto) 33.0 (20.0-40.0) % [place] % (Auto) 9.4 H (2.0-8.0) % Eos % (Auto) 3.9 H (1.0-3.0) % Baso % (Auto) 0.3 (0.0-1.0) % Immature Gran # (Auto) 0.01 (0.00-0.50) 10^3/uL Neut # (Auto) 3.29 (2.50-7.00) 10^3/uL Lymph # (Auto) 2.04 (1.00-4.00) 10^3/uL [place] # (Auto) 0.58 (0.10-0.80) 10^3/uL Eos # (Auto) 0.24 (0.10-0.30) 10^3/uL Baso # (Auto) 0.02 (0.00-0.10) 10^3/uL Sodium 140 (136-145) mmol/L Potassium 2.9 L (3.3-5.3) mmol/L Chloride 103 (98-115) mmol/L Carbon Dioxide 30.2 (21.0-32.0) mmol/L Anion Gap 9.7 (5-15) mmol/L BUN 13 (6-25) mg/dL Creatinine 0.71 (0.51-1.17) mg/dL Est Cr Clr Drug Dosing 94.10 mL/min Estimated GFR (MDRD) > 60 mL/min Glucose 107 H (75 - 99) mg/dL Calcium 8.8 (8.7-10.3) mg/dL Total Bilirubin 0.8 (0.2-1.0) mg/dL AST 16 (15-37) U/L ALT 28 (12-78) U/L Alkaline Phosphatase 41 L (46-116) IU/L C-Reactive Protein 0.5 (0.0-0.9) mg/dL Total Protein 7.2 (6.4-8.2) g/dL Albumin 3.80 (3.00-4.80) g/dL Specimen Type Urincc Urine Color Yellow (YELLOW) Urine Appearance Slightly cloudy H (CLEAR) Urine pH 5.5 (5.0-9.0) Ur Specific [place] 1.025 (1.005-1.030) Urine Protein Negative (NEGATIVE) mg/dL Urine Glucose (UA) Negative (NEGATIVE) mg/dL Urine Ketones >=160 H (NEGATIVE) mg/dL Urine Occult Blood Negative (NEGATIVE) Urine Nitrite Negative (NEGATIVE) Urine Bilirubin Moderate H (NEGATIVE) Urine Urobilinogen 0.2 (0.2-1.0) E.U./dL Ur Leukocyte Esterase Negative (NEGATIVE) Urine RBC 0-5 (0-5) /HPF Urine WBC 5-10 H (0-5) /HPF Ur Epithelial Cells Moderate H /LPF Urine Bacteria Moderate H (NONE TO FEW) /HPF Urine Mucus Many H (NEGATIVE) /LPF Meds: Medications Generic Name Dose Route Start Last Admin Trade Name Freq PRN Reason Stop Dose Admin Sodium Chloride 1,000 mls @ 999 mls/hr 11/01/19 23:10 11/01/19 23:15 Normal Saline IV 11/02/19 00:10 999 mls/hr .BOLUS ONE Administration Discontinued Medications Generic Name Dose Route Start Last Admin Trade Name Freq PRN Reason Stop Dose Admin Sodium Chloride Confirm 11/01/19 23:11 11/01/19 23:51 Normal Saline Administered 11/01/19 23:12 Not Given Dose 1,000 mls @ as directed .ROUTE .STK-MED ONE Ketorolac Tromethamine 30 mg 11/01/19 23:10 11/01/19 23:20 Toradol IVPUSH 11/01/19 23:11 30 mg ONETIME ONE Administration Ketorolac Tromethamine Confirm 11/01/19 23:11 11/01/19 23:51 Toradol Administered 11/01/19 23:12 Not Given Dose 30 mg .ROUTE .STK-MED ONE Ondansetron HCl 4 mg 11/01/19 23:10 11/01/19 23:25 Zofran IVPUSH 11/01/19 23:11 4 mg ONETIME ONE Administration Ondansetron HCl Confirm 11/01/19 23:11 11/01/19 23:51 Zofran Administered 11/01/19 23:12 Not Given Dose 4 mg .ROUTE .STK-MED ONE - Re-Assessments/Exams Free Text/Narrative Re-Assessment/Exam: 11/01/19 23:11 Patient would also like Zofran and Toradol for a migraine that is coming back now. She took Imitrex earlier. 11/01/19 23:56 Positive for both Influenza A and B. UA shows some bacteria but likely contaminant; will culture. Covid-19 test also pending. Discussed findings and treatment plan with patient and her . Discharged to home in stable condition. Departure - Departure Time of Disposition: 23:53 Disposition: Home, Self-Care 01 Condition: Good Clinical Impression: Influenza A, Influenza B - Discharge Information Instructions: Influenza, Adult, [id number] Referrals: PCP,Not In Area [Primary Care Provider] - Additional Instructions: 1. Drink 8+ cups of water daily. 2. You can use Tylenol as directed for pain and fever when needed. 3. Isolate yourself as much as possible until the results of the [place] virus test results are available. 4. Follow up with your PCP if worsening or not improving as expected. Sepsis Event Note - Focused Exam Vital Signs: Vital Signs Temp Pulse Resp BP Pulse Ox 11/01/19 23:40 97.3 F 81 18 121/60 97 11/01/19 22:00 97.9 F 83 20 115/66 100 Date Exam was Performed: 11/01/19 Time Exam was Performed: 23:58 - My Orders Last 24 Hours: My Active Orders 11/01/19 22:50 Isolation [COMM] Routine 11/01/19 22:51 CORONAVIRUS COVID-19 PCR PHL Stat 11/01/19 23:07 CXR [Chest 2V] [CR] Stat 11/01/19 23:10 Sodium Chloride 0.9% @ 999 MLS/HR (1000ml) Sodium Chloride 0.9% [Normal Saline] 1,000 ml IV .BOLUS 11/01/19 23:41 CULTURE URINE [RM] Stat - Assessment/Plan Last 24 Hours: My Active Orders 11/01/19 22:50 Isolation [COMM] Routine 11/01/19 22:51 CORONAVIRUS COVID-19 PCR PHL Stat 11/01/19 23:07 CXR [Chest 2V] [CR] Stat 11/01/19 23:10 Sodium Chloride 0.9% @ 999 MLS/HR (1000ml) Sodium Chloride 0.9% [Normal Saline] 1,000 ml IV .BOLUS 11/01/19 23:41 CULTURE URINE [RM] Stat
[2019-11-01] MEDS ORDERED: Sodium Chloride 0.9% 1,000 ML IV ONE (23:10)
[2019-11-01] MEDS ORDERED: Ondansetron 4 MG/2 ML SDV IVPUSH ONE (23:10)
[2019-11-01] MEDS ORDERED: Ketorolac 30 MG/ML SDV IVPUSH ONE (23:10)
[2019-11-01] MEDS ORDERED: Sodium Chloride 0.9% 1,000 ML ONE (23:11)
[2019-11-01] MEDS ORDERED: Ketorolac 30 MG/ML SDV ONE (23:11)
[2019-11-01] MEDS ORDERED: Ondansetron 4 MG/2 ML SDV ONE (23:11)
[2019-11-01 23:36] LABS: ANION GAP 9.7 mmol/L (5-15); CHLORIDE,CL 103 mmol/L (98-115); SODIUM,NA 140 mmol/L (136-145)
== END 2019-11-01 23:55 | disposition home or self-care (01) ==
LOC: KA.ED 21:57
DX: J10.1 Influenza due to other identified influenza virus with other respiratory manifestations (principal); F31.9 Bipolar disorder, unspecified; F41.9 Anxiety disorder, unspecified; Z88.8 Allergy status to other drugs, medicaments and biological substances; Z79.899 Other long term (current) drug therapy
CPT/HCPCS: 36415; 71046; 80053; 81001; 85025; 86140; 87086; 87804; 96374; 96375; 99283; J1885; J2405; J7030